=== PATIENT | female | born 1950 | race Caucasian/White ===

== ENCOUNTER 2017-03-28 14:46 | Emergency (ER) | payer MEDICARE, OTHER ==
[2017-03-28 15:13] VITALS: BP 107/62
[2017-03-28] MEDS ORDERED: hydrOXYzine HCl 50 MG/ML SDV IM ONE (15:34)
--- NOTE | 2017-03-28 15:40 | EDM.PDOC ---
ED HPI GENERAL MEDICAL PROBLEM - General Chief Complaint: General Stated Complaint: anxiety Time Seen by Provider: 03/28/17 14:59 Source of Information: Reports: Patient, Family History Limitations: Reports: No Limitations - History of Present Illness INITIAL COMMENTS - FREE TEXT/NARRATIVE: Patient comes in today with daughter with ongoing anxiety issues. Patient's had anxiety most of her life however over the course the last 3 months is really increase in significance. Patient's patient of the [facility] however has not been seen in 3 months. States that she does have a history of taking her spelled on the past for to lose hallucinations and delusions however she has not been on a greater than 10 years her current medication regimen for her psychiatric diagnosis is lorazepam half at tablet a day. Patient did take that today however she states that she is still extremely anxious. She has had intermittent thoughts of suicidal ideations no plans or intent so however. She denies any homicidal feelings. Patient states that she has had intermittent delusional thought processes as well states that she saw a [place] doing a flip when she was lying in her bed and also size [employer] patient yesterday when going out to get a package. did take half a tablet of lorazepam earlier today however states that it did not have a significant change in her anxiety patient denies any suicidal ideations currently and states that she does not have any plans to hurt herself and knows that if she does have suicidal ideations that she is to call the crisis center reports the emergency department department. These are inconsistent and are not frequent however she states that she has not had them in the past. She does have an appointment coming up with her psychiatric provider at the [facility]. Onset: Gradual - Related Data Allergies Allergy/AdvReac Type Severity Reaction Status Date / Time No Known Allergies Allergy Verified 03/28/17 15:15 Home Meds: Home Meds Aspirin [Halfprin] 81 mg PO BRK 04/26/15 [History] Levothyroxine 125 mcg PO ACBREAKFAST 04/26/15 [History] Lisinopril 10 mg PO DAILY 04/26/15 [History] atorvaSTATin [Lipitor] 80 mg PO BEDTIME 04/26/15 [History] glipiZIDE/Metformin HCl [GlipiZIDE-Metformin 2.5-500 MG] 2 tab PO BID 04/26/15 [ History] Acarbose [Acarbose] 50 mg PO TIDMEALS 12/28/17 [History] Carvedilol [Carvedilol] 6.25 mg PO BID 03/05/17 [History] Clopidogrel Bisulfate [Clopidogrel] 75 mg PO DAILY 03/05/17 [History] Furosemide [Furosemide] 40 mg PO BID 03/05/17 [History] LORazepam [LORazepam] 0.5 - 1 mg PO ASDIRECTED PRN 03/05/17 [History] Nitroglycerin [Nitrostat] 0.4 mg SL Q5M PRN 03/05/17 [History] Pilocarpine [Salagen] 5 mg PO TID 03/26/17 [History] Acetaminophen [Tylenol Extra Strength] 500 mg PO Q4H PRN 03/28/17 [History] Cholecalciferol (Vitamin D3) [D-2000] 2,000 unit PO BID 03/28/17 [History] hydrOXYzine Pamoate [Hydroxyzine Pamoate] 25 mg PO TID #20 capsule 03/28/17 [Rx] Past Medical History Cardiovascular History: Reports: Angina, CAD, Heart Failure, High Cholesterol, Hypertension, [place], Stents Respiratory History: Reports: COPD, Other (See Below) Other Respiratory History: supplimental oxygen at home Other Gastrointestinal History: OCCULT POSITIVE STOOL (03/29/15). FAMILY HISTORY COLON CANCER Musculoskeletal History: Reports: Back Pain, Chronic Other Musculoskeletal History: OVERWEIGHT Neurological History: Reports: Headaches, Chronic Other Neuro History: CARPAL TUNNEL SYNDROME Psychiatric History: Reports: Anxiety, Suicide Attempt, Other (See Below) Other Psychiatric History: Psychiatric disorder Endocrine/Metabolic History: Reports: Diabetes, Type II, Hypothyroidism - Past Surgical History Cardiovascular Surgical History: Reports: Coronary Artery Stent Social & Family History - Tobacco Use Smoking Status *Q: Current Every Day Smoker Years of Tobacco use: 50 Packs/Tins Daily: 1 ED ROS GENERAL - Review of Systems Review Of Systems: See Below Constitutional: Reports: No Symptoms HEENT: Reports: No Symptoms Respiratory: Reports: No Symptoms Cardiovascular: Reports: No Symptoms Endocrine: Reports: No Symptoms Skin: Reports: No Symptoms Neurological: Reports: No Symptoms. Denies: Confusion, Dizziness, Headache, Numbness, Paresthesia, Pre-Existing Deficit, Seizure, Syncope, Tingling, Trouble Speaking, Difficulty Walking, Weakness, Change in Speech Psychiatric: Reports: Anxiety, Depression, Suicidal Ideation (intermittent ). Denies: Confusion Hematologic/Lymphatic: Reports: No Symptoms Immunologic: Reports: No Symptoms ED EXAM, GENERAL - Physical Exam Exam: See Below Exam Limited By: No Limitations General Appearance: Alert, WD/WN, No Apparent Distress Head: Atraumatic, Normocephalic Neck: Normal Inspection, Supple, Non-Tender, Full Range of Motion Respiratory/Chest: No Respiratory Distress, Lungs Clear, Normal Breath Sounds Cardiovascular: Normal Peripheral Pulses, Regular Rate, Rhythm, No Gallop Back Exam: Normal Inspection Extremities: Normal Inspection, Normal Range of Motion Neurological: Alert, Oriented, CN II-XII Intact, Normal Cognition, Normal Gait Psychiatric: Normal Affect, Normal Mood Skin Exam: Warm, Dry, Intact, Normal Color, No Rash Course - Vital Signs Last Recorded V/S: Last Vital Signs Temp 36.1 C 03/28/17 15:09 Pulse 85 03/28/17 15:09 Resp 18 03/28/17 15:09 BP 107/62 03/28/17 15:09 Pulse Ox 97 03/28/17 15:09 Departure - Departure Time of Disposition: 15:56 Disposition: Home, Self-Care 01 Condition: Good Clinical Impression: Anxiety - Discharge Information Instructions: Panic Attacks, [id number] Additional Instructions: -Check blood sugar prior to eating -Eat balanced meals that are appropriate for her diabetes -Take medication as prescribed/when necessary when anxiety is increased -Follow-up with your psychiatric provider for further evaluation and long-term management related to anxiety -Return to the emergency department or contact the crisis line and suicidal ideations arise -Follow-up with your PCP within the next 1-2 weeks regarding your hyperglycemic events and further long-term management
== END 2017-03-28 16:00 | disposition home or self-care (01) ==
LOC: VM.ED 14:46
DX: F41.9 Anxiety disorder, unspecified (principal); F32.9 Major depressive disorder, single episode, unspecified; I11.0 Hypertensive heart disease with heart failure; I50.9 Heart failure, unspecified; E78.00 Pure hypercholesterolemia, unspecified; J44.9 Chronic obstructive pulmonary disease, unspecified; E11.9 Type 2 diabetes mellitus without complications; E03.9 Hypothyroidism, unspecified; F17.210 Nicotine dependence, cigarettes, uncomplicated; Z79.899 Other long term (current) drug therapy
CPT/HCPCS: 99283; J3410

== ENCOUNTER 2017-04-02 10:53 | Emergency (ER) | payer MEDICARE, OTHER ==
[2017-04-02 12:03] VITALS: BP 127/57
--- NOTE | 2017-04-02 13:39 | EDM.PDOC ---
ED HPI GENERAL MEDICAL PROBLEM - General Chief Complaint: General Stated Complaint: ER Time Seen by Provider: 04/02/17 11:15 Source of Information: Reports: Patient History Limitations: Reports: No Limitations Lower Back Pain Score (Numeric/FACES): 3 - Related Data Allergies Allergy/AdvReac Type Severity Reaction Status Date / Time No Known Allergies Allergy Verified 04/02/17 11:07 Home Meds: Home Meds Aspirin [Halfprin] 81 mg PO BRK 04/26/15 [History] Levothyroxine 125 mcg PO ACBREAKFAST 04/26/15 [History] Lisinopril 10 mg PO DAILY 04/26/15 [History] atorvaSTATin [Lipitor] 80 mg PO BEDTIME 04/26/15 [History] glipiZIDE/Metformin HCl [GlipiZIDE-Metformin 2.5-500 MG] 2 tab PO BID 04/26/15 [ History] Acarbose [Acarbose] 50 mg PO TIDMEALS 03/05/17 [History] Carvedilol [Carvedilol] 6.25 mg PO BID 03/05/17 [History] Clopidogrel Bisulfate [Clopidogrel] 75 mg PO DAILY 03/05/17 [History] Furosemide [Furosemide] 40 mg PO BID 03/05/17 [History] LORazepam [LORazepam] 0.5 - 1 mg PO ASDIRECTED PRN 03/05/17 [History] Nitroglycerin [Nitrostat] 0.4 mg SL Q5M PRN 03/05/17 [History] Pilocarpine [Salagen] 5 mg PO TID 03/26/17 [History] Acetaminophen [Tylenol Extra Strength] 500 mg PO Q4H PRN 03/28/17 [History] Cholecalciferol (Vitamin D3) [D-2000] 2,000 unit PO BID 03/28/17 [History] hydrOXYzine Pamoate [Hydroxyzine Pamoate] 25 mg PO TID #20 capsule 03/28/17 [Rx] Past Medical History Cardiovascular History: Reports: Angina, CAD, Heart Failure, High Cholesterol, Hypertension, [place], Stents Respiratory History: Reports: COPD, Other (See Below) Other Respiratory History: supplimental oxygen at home Other Gastrointestinal History: OCCULT POSITIVE STOOL (03/29/15). FAMILY HISTORY COLON CANCER Musculoskeletal History: Reports: Back Pain, Chronic Other Musculoskeletal History: OVERWEIGHT Neurological History: Reports: Headaches, Chronic Other Neuro History: CARPAL TUNNEL SYNDROME Psychiatric History: Reports: Anxiety, Suicide Attempt, Other (See Below) Other Psychiatric History: Psychiatric disorder Endocrine/Metabolic History: Reports: Diabetes, Type II, Hypothyroidism - Past Surgical History Cardiovascular Surgical History: Reports: Coronary Artery Stent Social & Family History - Tobacco Use Smoking Status *Q: Current Every Day Smoker Years of Tobacco use: 50 Packs/Tins Daily: 1 ED ROS GENERAL - Review of Systems Review Of Systems: See Below Constitutional: Reports: No Symptoms HEENT: Reports: No Symptoms Respiratory: Reports: No Symptoms Cardiovascular: Reports: Blood Pressure Problem Endocrine: Reports: No Symptoms GI/Abdominal: Reports: No Symptoms : Reports: No Symptoms Musculoskeletal: Reports: No Symptoms Skin: Reports: No Symptoms Neurological: Reports: No Symptoms Psychiatric: Reports: No Symptoms Hematologic/Lymphatic: Reports: No Symptoms Immunologic: Reports: No Symptoms ED EXAM, GENERAL - Physical Exam Exam: See Below Exam Limited By: No Limitations General Appearance: Alert, WD/WN, No Apparent Distress Ears: Normal External Exam, Normal Canal, Hearing Grossly Normal, Normal TMs Ear Exam: Bilateral Ear: Auricle Normal, Canal Normal, TM normal Nose: Normal Inspection, Normal Mucosa, No Blood Throat/Mouth: Normal Inspection, Normal Lips, Normal Teeth, Normal Gums, Normal Oropharynx, Normal Voice, No Airway Compromise Head: Atraumatic, Normocephalic Neck: Normal Inspection, Supple, Non-Tender, Full Range of Motion Respiratory/Chest: No Respiratory Distress, Lungs Clear, Normal Breath Sounds, No Accessory Muscle Use, Chest Non-Tender Cardiovascular: Normal Peripheral Pulses, Regular Rate, Rhythm, No Edema, No Gallop, No JVD, No Murmur, No Rub GI/Abdominal: Normal Bowel Sounds, Soft, Non-Tender, No Organomegaly, No Distention, No Abnormal Bruit, No Mass (Female) Exam: Normal External Exam, Normal Speculum Exam, Normal Bimanual Exam Rectal (Female) Exam: Normal Exam, Normal Rectal Tone Back Exam: Normal Inspection, Full Range of Motion, NT Extremities: Normal Inspection, Normal Range of Motion, Non-Tender, Normal Capillary Refill, No Pedal Edema Neurological: Alert, Oriented, CN II-XII Intact, Normal Cognition, Normal Gait, Normal Reflexes, No Motor/Sensory Deficits Psychiatric: Normal Affect, Normal Mood Skin Exam: Warm, Dry, Intact, Normal Color, No Rash Lymphatic: No Adenopathy EKG INTERPRETATION Rhythm: NSR Course - Vital Signs Last Recorded V/S: Last Vital Signs Temp 36.6 C 04/02/17 11:00 Pulse 74 04/02/17 11:56 Resp 16 04/02/17 11:06 BP 127/57 L 04/02/17 11:56 Pulse Ox 95 04/02/17 11:06 - Orders/Labs/Meds Orders: Active Orders 24 hr Category Date Time Status EKG Documentation Completion [RC] STAT Care 04/02/17 11:22 Active Labs: Laboratory Tests 04/02/17 04/02/17 Range/Units 11:35 11:35 WBC 9.8 (4.0-10.0) x10^3/uL RBC 4.17 (4.00-5.50) x10^6/uL Hgb 12.1 (12.0-16.0) g/dL Hct 36.1 (33.0-47.0) % MCV 86.6 (78.0-93.0) fL MCH 29.0 (26.0-32.0) pg MCHC 33.5 (32.0-36.0) g/dL RDW Coeff of Manjinder 15.4 H (10.0-15.0) % Plt Count 212 (130-400) x10^3/uL Neut % (Auto) 80.9 H (50.0-80.0) % Lymph % (Auto) 14.4 L (25.0-50.0) % [place] % (Auto) 3.8 (2.0-11.0) % Eos % (Auto) 0.8 (0.0-4.0) % Baso % (Auto) 0.1 L (0.2-1.2) % Sodium 136 (136-145) mmol/L Potassium 3.2 L (3.5-5.1) mmol/L Chloride 100 (98-107) mmol/L Carbon Dioxide 22 (21-32) mmol/L BUN 21 H (7-18) mg/dL Creatinine 1.1 H (0.55-1.02) mg/dL Est Cr Clr Drug Dosing 42.27 mL/min Estimated GFR (MDRD) 49 Glucose 310 H (74-106) mg/dL Calcium 8.8 (8.5-10.1) mg/dL Troponin I 0.022 (<=0.056) ng/mL Departure - Departure Time of Disposition: 12:35 Disposition: Home, Self-Care 01 Condition: Good Clinical Impression: Hypotension - Discharge Information Instructions: Hypotension, [id number], Hyperglycemia, [id number] Referrals: Shiva Gutierrez MD [Primary Care Provider] - Forms: ED Department Discharge Additional Instructions: Follow-up with Dr. Gutierrez regarding your blood sugar management. Return to ER if you have any chest pain, shortness of breath, or lightheadedness. - My Orders Last 24 Hours: My Active Orders 04/02/17 11:22 EKG Documentation Completion [RC] STAT - Assessment/Plan Last 24 Hours: My Active Orders 04/02/17 11:22 EKG Documentation Completion [RC] STAT
== END 2017-04-02 12:35 | disposition home or self-care (01) ==
LOC: VM.ED 10:53
DX: I95.9 Hypotension, unspecified (principal); I11.0 Hypertensive heart disease with heart failure; I50.9 Heart failure, unspecified; E11.9 Type 2 diabetes mellitus without complications; F17.210 Nicotine dependence, cigarettes, uncomplicated; E78.00 Pure hypercholesterolemia, unspecified; Z79.899 Other long term (current) drug therapy
CPT/HCPCS: 36415; 80048; 84484; 85025; 93005; 99283-GF; 99285

== ENCOUNTER 2017-04-19 16:54 | Emergency (ER) | payer MEDICARE, OTHER ==
[2017-04-19 17:09] VITALS: BP 113/41
--- NOTE | 2017-04-19 17:29 | EDM.PDOC ---
ED HPI GENERAL MEDICAL PROBLEM - General Chief Complaint: Respiratory Problem Stated Complaint: ER Time Seen by Provider: 04/19/17 17:01 Source of Information: Reports: Patient, Family History Limitations: Reports: No Limitations - History of Present Illness INITIAL COMMENTS - FREE TEXT/NARRATIVE: Patient comes into the emergency department today to have her oxygen level checked. She has home O2 at night and she's not sure that the machine is working. She denies being short of breath having chest discomfort dizziness or lightheaded. However she is concerned that she did not obtain enough oxygen and she would like her O2 saturation checked. She has had many service calls to her house regarding Her concentrator. She is nervous regarding machine and if it is really working. Onset: Gradual - Related Data Allergies Allergy/AdvReac Type Severity Reaction Status Date / Time No Known Allergies Allergy Verified 04/19/17 17:11 Home Meds: Home Meds Aspirin [Halfprin] 81 mg PO BRK 04/26/15 [History] Levothyroxine 125 mcg PO ACBREAKFAST 04/26/15 [History] Lisinopril 10 mg PO DAILY 04/26/15 [History] atorvaSTATin [Lipitor] 80 mg PO BEDTIME 04/26/15 [History] glipiZIDE/Metformin HCl [GlipiZIDE-Metformin 2.5-500 MG] 2 tab PO BID 04/26/15 [ History] Acarbose [Acarbose] 50 mg PO TIDMEALS 03/05/17 [History] Carvedilol [Carvedilol] 6.25 mg PO BID 03/05/17 [History] Clopidogrel Bisulfate [Clopidogrel] 75 mg PO DAILY 03/05/17 [History] Furosemide [Furosemide] 40 mg PO BID 03/05/17 [History] LORazepam [LORazepam] 0.5 - 1 mg PO ASDIRECTED PRN 03/05/17 [History] Nitroglycerin [Nitrostat] 0.4 mg SL Q5M PRN 03/05/17 [History] Pilocarpine [Salagen] 5 mg PO TID 03/26/17 [History] Acetaminophen [Tylenol Extra Strength] 500 mg PO Q4H PRN 03/28/17 [History] Cholecalciferol (Vitamin D3) [D-2000] 2,000 unit PO BID 03/28/17 [History] hydrOXYzine Pamoate [Hydroxyzine Pamoate] 25 mg PO TID #20 capsule 03/28/17 [Rx] Past Medical History Cardiovascular History: Reports: Angina, CAD, Heart Failure, High Cholesterol, Hypertension, [place], Stents Respiratory History: Reports: COPD, Other (See Below) Other Respiratory History: supplimental oxygen at home Other Gastrointestinal History: OCCULT POSITIVE STOOL (03/29/15). FAMILY HISTORY COLON CANCER Musculoskeletal History: Reports: Back Pain, Chronic Other Musculoskeletal History: OVERWEIGHT Neurological History: Reports: Headaches, Chronic Other Neuro History: CARPAL TUNNEL SYNDROME Psychiatric History: Reports: Anxiety, Suicide Attempt, Other (See Below) Other Psychiatric History: Psychiatric disorder Endocrine/Metabolic History: Reports: Diabetes, Type II, Hypothyroidism - Past Surgical History Cardiovascular Surgical History: Reports: Coronary Artery Stent Social & Family History - Tobacco Use Smoking Status *Q: Former Smoker Years of Tobacco use: 50 Packs/Tins Daily: 1 Used Tobacco, but Quit: Yes Month Tobacco Last Used: mar 2017 ED ROS GENERAL - Review of Systems Review Of Systems: See Below Constitutional: Reports: No Symptoms HEENT: Reports: No Symptoms Respiratory: Reports: No Symptoms Cardiovascular: Reports: No Symptoms Endocrine: Reports: No Symptoms GI/Abdominal: Reports: No Symptoms : Reports: No Symptoms Musculoskeletal: Reports: No Symptoms Skin: Reports: No Symptoms Neurological: Reports: No Symptoms Psychiatric: Reports: No Symptoms ED EXAM, GENERAL - Physical Exam Exam: See Below Exam Limited By: No Limitations General Appearance: Alert, WD/WN, No Apparent Distress Head: Atraumatic, Normocephalic Neck: Normal Inspection, Supple Respiratory/Chest: No Respiratory Distress, Lungs Clear, Normal Breath Sounds, No Accessory Muscle Use, Chest Non-Tender Cardiovascular: Normal Peripheral Pulses, Regular Rate, Rhythm, No Edema, No Gallop, No JVD, No Murmur, No Rub Peripheral Pulses: 2+: Carotid (L), Carotid (R), Radial (L), Radial (R), Posterior Tibial (L), Posterior Tibial (R), Dorsalis Pedis (L), Dorsalis Pedis ( R) GI/Abdominal: Normal Bowel Sounds, Soft, Non-Tender, No Distention, No Abnormal Bruit Extremities: Normal Inspection, Normal Range of Motion, Non-Tender, No Pedal Edema, Normal Capillary Refill Neurological: Alert, Oriented, Normal Cognition, Normal Gait Psychiatric: Normal Affect, Normal Mood Skin Exam: Warm, Dry, Intact, Normal Color, No Rash Course - Vital Signs Last Recorded V/S: Last Vital Signs Temp 36.5 C 04/19/17 16:57 Pulse 88 04/19/17 16:57 Resp 18 04/19/17 16:57 BP 113/41 L 04/19/17 16:57 Pulse Ox 96 04/19/17 16:57 Departure - Departure Time of Disposition: 17:30 Disposition: Home, Self-Care 01 Condition: Good Clinical Impression: Anxiety - Discharge Information Instructions: Shortness of Breath, [id number] Additional Instructions: Contact [employer] on Thursday to have them service your concentrator on her oxygen machine Follow the instructions provided by the [employer] staff when applying and using the oxygen Ensure using only distilled water and the machine If feeling short of breath sit in a chair and try to relax for a few minutes and see if it resides once oxygen is on return to the ER if on going short of breath occurs or lips turning blue despite O2 treatment at night.
== END 2017-04-19 17:35 | disposition home or self-care (01) ==
LOC: VM.ED 16:54
DX: F41.9 Anxiety disorder, unspecified (principal); I11.0 Hypertensive heart disease with heart failure; I50.9 Heart failure, unspecified; E11.9 Type 2 diabetes mellitus without complications; E03.9 Hypothyroidism, unspecified; Z79.82 Long term (current) use of aspirin; Z79.899 Other long term (current) drug therapy; Z87.891 Personal history of nicotine dependence
CPT/HCPCS: 99283

== ENCOUNTER 2017-04-20 12:57 | Emergency (ER) | payer MEDICARE, OTHER ==
[2017-04-20 13:47] LABS: CHLORIDE,CL 109 mmol/L (98-107); SODIUM,NA 146 mmol/L (136-145)
[2017-04-20 13:54] VITALS: BP 111/47
[2017-04-20 13:58] LABS: ACETAMINOPHEN 0 ug/ml (10-30)
--- NOTE | 2017-04-21 02:03 | EDM.PDOCBH ---
ED HPI GENERAL MEDICAL PROBLEM - General Chief Complaint: Behavioral/Psych Time Seen by Provider: 04/20/17 13:10 Source of Information: Reports: Patient History Limitations: Reports: No Limitations - History of Present Illness INITIAL COMMENTS - FREE TEXT/NARRATIVE: Pt. presents to ER, brought to ER via law enforcement. Pt. called the crisis line at [facility] stating that she had been unable to sleep due to a problem with her O2 concentrator which was fixed earlier today by her medical equipment company. She states that her furnace is also loud which makes it difficult to sleep. She states that she is tired and wants to sleep. She was previously in the [facility] in [place] but left because she did not like her roomates. Pt. states that she does not feel suicidal or homicidal and denies any suicidal plans. She states that she is lonely and does not feel like being alone at her trailer home. Her daughter states that she is able to start at her residence, but pt. states that she won't due to personal conflicts with the daughter. Onset: Today Location: Reports: Generalized - Related Data Allergies Allergy/AdvReac Type Severity Reaction Status Date / Time No Known Allergies Allergy Verified 04/20/17 13:27 Home Meds: Home Meds Aspirin [Halfprin] 81 mg PO BRK 04/26/15 [History] Levothyroxine 125 mcg PO ACBREAKFAST 04/26/15 [History] Lisinopril 10 mg PO DAILY 04/26/15 [History] atorvaSTATin [Lipitor] 80 mg PO BEDTIME 04/26/15 [History] glipiZIDE/Metformin HCl [GlipiZIDE-Metformin 2.5-500 MG] 2 tab PO BID 04/26/15 [ History] Acarbose [Acarbose] 50 mg PO TIDMEALS 03/05/17 [History] Carvedilol [Carvedilol] 6.25 mg PO BID 03/05/17 [History] Clopidogrel Bisulfate [Clopidogrel] 75 mg PO DAILY 03/05/17 [History] Furosemide [Furosemide] 40 mg PO BID 03/05/17 [History] LORazepam [LORazepam] 0.5 - 1 mg PO ASDIRECTED PRN 03/05/17 [History] Nitroglycerin [Nitrostat] 0.4 mg SL Q5M PRN 03/05/17 [History] Pilocarpine [Salagen] 5 mg PO TID 03/26/17 [History] Acetaminophen [Tylenol Extra Strength] 500 mg PO Q4H PRN 03/28/17 [History] Cholecalciferol (Vitamin D3) [D-2000] 2,000 unit PO BID 03/28/17 [History] hydrOXYzine Pamoate [Hydroxyzine Pamoate] 25 mg PO TID #20 capsule 03/28/17 [Rx] Past Medical History Cardiovascular History: Reports: Angina, CAD, Heart Failure, High Cholesterol, Hypertension, [place], Stents Respiratory History: Reports: COPD, Other (See Below) Other Respiratory History: supplimental oxygen at home Other Gastrointestinal History: OCCULT POSITIVE STOOL (03/29/15). FAMILY HISTORY COLON CANCER Musculoskeletal History: Reports: Back Pain, Chronic Other Musculoskeletal History: OVERWEIGHT Neurological History: Reports: Headaches, Chronic Other Neuro History: CARPAL TUNNEL SYNDROME Psychiatric History: Reports: Anxiety, Suicide Attempt, Other (See Below) Other Psychiatric History: Psychiatric disorder Endocrine/Metabolic History: Reports: Diabetes, Type II, Hypothyroidism - Past Surgical History Cardiovascular Surgical History: Reports: Coronary Artery Stent Social & Family History - Tobacco Use Smoking Status *Q: Former Smoker Years of Tobacco use: 50 Packs/Tins Daily: 1 Used Tobacco, but Quit: Yes Month Tobacco Last Used: Mar - Recreational Drug Use Recreational Drug Use: No ED ROS GENERAL - Review of Systems Review Of Systems: See Below Constitutional: Reports: No Symptoms HEENT: Reports: No Symptoms Respiratory: Reports: No Symptoms Cardiovascular: Reports: No Symptoms Endocrine: Reports: No Symptoms GI/Abdominal: Reports: No Symptoms : Reports: No Symptoms Musculoskeletal: Reports: No Symptoms Skin: Reports: No Symptoms Neurological: Reports: No Symptoms Psychiatric: Reports: Agitation, Anxiety, Depression. Denies: Confusion, Hallucinations, Homicidal Ideation, Suicidal Ideation Hematologic/Lymphatic: Reports: No Symptoms Immunologic: Reports: No Symptoms ED EXAM, BEHAVIORAL HEALTH - Physical Exam Exam: See Below Exam Limited By: No Limitations General Appearance: Alert, WD/WN, No Apparent Distress Eye Exam: Bilateral Eye: EOMI, Normal Fundi, Normal Inspection, PERRL Ears: Normal External Exam, Normal Canal, Hearing Grossly Normal, Normal TMs Nose: Normal Inspection, Normal Mucosa, No Blood Throat/Mouth: Normal Inspection, Normal Lips, Normal Teeth, Normal Gums, Normal Oropharynx, Normal Voice, No Airway Compromise Head: Atraumatic, Normocephalic Neck: Normal Inspection, Supple, Non-Tender, Full Range of Motion Respiratory/Chest: No Respiratory Distress, Lungs Clear, Normal Breath Sounds, No Accessory Muscle Use, Chest Non-Tender Cardiovascular: Normal Peripheral Pulses, Regular Rate, Rhythm, No Edema, No Gallop, No JVD, No Murmur, No Rub GI/Abdominal: Normal Bowel Sounds, Soft, Non-Tender, No Organomegaly, No Distention, No Abnormal Bruit, No Mass (Female) Exam: Deferred Rectal (Female) Exam: Deferred Back Exam: Normal Inspection, Full Range of Motion, NT Extremities: Normal Inspection, Normal Range of Motion, Non-Tender, Normal Capillary Refill, No Pedal Edema Neurological: Alert, Normal Mood/Affect, CN II-XII Intact, Normal Cognition, Normal Gait, Normal Reflexes, No Motor/Sensory Deficits, Oriented x 3 Psychiatric: Alert, Normal Affect, Normal Cognition, Oriented, Depressed Mood, Agitated, Phobic Skin Exam: Warm, Dry, Intact, Normal color, No rash COURSE, BEHAVIORAL HEALTH COMP - Course Vital Signs: Last Vital Signs Temp 36.8 C 04/20/17 13:00 Pulse 94 04/20/17 13:00 Resp 16 04/20/17 13:00 BP 111/47 L 04/20/17 13:00 Pulse Ox 97 04/20/17 13:00 Orders, Labs, Meds: Laboratory Tests 04/20/17 04/20/17 04/20/17 Range/Units 13:20 13:20 13:20 WBC 8.0 (4.0-10.0) x10^3/uL RBC 4.09 (4.00-5.50) x10^6/uL Hgb 12.0 (12.0-16.0) g/dL Hct 35.9 (33.0-47.0) % MCV 87.8 (78.0-93.0) fL MCH 29.3 (26.0-32.0) pg MCHC 33.4 (32.0-36.0) g/dL RDW Coeff of Manjinder 15.7 H (10.0-15.0) % Plt Count 218 (130-400) x10^3/uL Neut % (Auto) 72.5 (50.0-80.0) % Lymph % (Auto) 21.1 L (25.0-50.0) % Beaver % (Auto) 5.0 (2.0-11.0) % Eos % (Auto) 1.3 (0.0-4.0) % Baso % (Auto) 0.1 L (0.2-1.2) % PT 11.0 (9.8-11.8) SEC INR 1.0 L (2.0-3.5) Sodium 146 H D (136-145) mmol/L Potassium 3.6 (3.5-5.1) mmol/L Chloride 109 H (98-107) mmol/L Carbon Dioxide 25 (21-32) mmol/L BUN 20 H (7-18) mg/dL Creatinine 1.2 H (0.55-1.02) mg/dL Est Cr Clr Drug Dosing TNP Estimated GFR (MDRD) 45 Glucose 165 H (74-106) mg/dL Calcium 9.3 (8.5-10.1) mg/dL Corrected Calcium 9.70 (8.5-10.1) mg/dL Total Bilirubin 0.6 (0.2-1.0) mg/dL AST 19 (15-37) U/L ALT 26 (14-59) U/L Alkaline Phosphatase 81 (46-116) U/L C-Reactive Protein < 0.2 (<=0.9) mg/dL Total Protein 6.8 (6.4-8.2) g/dL Albumin 3.5 (3.4-5.0) g/dL Globulin 3.3 Albumin/Globulin Ratio 1.06 Acetaminophen 0 L (10-30) ug/ml Ethyl Alcohol < 3 (0-3) mg/dL Departure - Departure Time of Disposition: 16:35 Disposition: Home, Self-Care 01 Condition: Good Clinical Impression: Panic disorder - Discharge Information Instructions: Panic Attacks, [id number] Referrals: Shiva Gutierrez MD [Primary Care Provider] - Forms: ED Department Discharge Additional Instructions: Opal from [facility] will be in contact with you tomorrow. - Assessment/Plan Assessment:: anxiety Plan: Spoke at length with pt., daughter, and [facility] staff. Certainly she is not a threat to herself or others and had not committed an overt act. She also is alert and answers all questions. Pt. stated that she did not want to go to the crisis unit and then changed her mind several times. [facility] staff offered to follow-up with pt. tomorrow to see if it is a possiblity of moving pt. to an apartment or other facility.
== END 2017-04-20 14:25 | disposition home or self-care (01) ==
LOC: VM.ED 12:57
DX: F41.0 Panic disorder [episodic paroxysmal anxiety] (principal); I11.0 Hypertensive heart disease with heart failure; I50.9 Heart failure, unspecified; E11.9 Type 2 diabetes mellitus without complications; E03.9 Hypothyroidism, unspecified; I25.10 Atherosclerotic heart disease of native coronary artery without angina pectoris; E78.00 Pure hypercholesterolemia, unspecified; J44.9 Chronic obstructive pulmonary disease, unspecified; Z95.5 Presence of coronary angioplasty implant and graft; Z87.891 Personal history of nicotine dependence; Z79.02 Long term (current) use of antithrombotics/antiplatelets; Z79.84 Long term (current) use of oral hypoglycemic drugs; Z79.899 Other long term (current) drug therapy; Z79.82 Long term (current) use of aspirin; Z99.81 Dependence on supplemental oxygen
CPT/HCPCS: 36415; 80053; 85025; 85610; 86140; 99283-GF; 99284; G0480

== ENCOUNTER 2024-06-16 06:53 | Day surgery (SDC) | payer MEDICARE, OTHER ==
[2024-06-16] MEDS: Lactated Ringers 1,000 ML IV SCH (07:10)
[2024-06-16] MEDS ORDERED: Propofol 200 MG/20 ML SDV ONE ×2 (08:24→09:00)
[2024-06-16] MEDS ORDERED: Midazolam 1 MG/ML 2 ML SDV ONE (08:24)
[2024-06-16] MEDS ORDERED: fentaNYL 100 MCG/2 ML SDV ONE (08:25)
[2024-06-16 09:40] VITALS: BP 142/51; PULSE 57
== END 2024-06-16 10:20 | disposition home or self-care (01) ==
LOC: VM.SDS 06:53
PROVIDERS: ATTEND Family Medicine
DX: Z12.11 Encounter for screening for malignant neoplasm of colon (principal); R19.5 Other fecal abnormalities; D12.6 Benign neoplasm of colon, unspecified; K63.5 Polyp of colon; K62.1 Rectal polyp; K57.30 Diverticulosis of large intestine without perforation or abscess without bleeding; K64.9 Unspecified hemorrhoids; E11.69 Type 2 diabetes mellitus with other specified complication; E66.9 Obesity, unspecified; I11.0 Hypertensive heart disease with heart failure; I50.22 Chronic systolic (congestive) heart failure; E03.9 Hypothyroidism, unspecified; E78.00 Pure hypercholesterolemia, unspecified; F17.210 Nicotine dependence, cigarettes, uncomplicated; Z79.890 Hormone replacement therapy; Z79.4 Long term (current) use of insulin; Z79.84 Long term (current) use of oral hypoglycemic drugs; Z79.899 Other long term (current) drug therapy
CPT/HCPCS: 00811; 82947; 99100; J2250; J2704; J3010; J7120